=== PATIENT | male | born 1980 | race Caucasian/White ===

== ENCOUNTER 2018-01-02 00:01 | Emergency (ER) | payer MEDICAID, OTHER ==
[~2018-01-02] VITALS: Ht 177.8 cm; Wt 77.2 kg
[2018-01-02] MEDS ORDERED: TETanus/Pertussis (Acell)/Diphther VAC/PF (Tdap-Adult) 0.5ml syringe IMVAC ONE (01:10)
[2018-01-02] MEDS ORDERED: LIDOcaine 1.5% w/epinephrine 1:200,000 5ml ampul IJ ONE (01:10)
[2018-01-02 01:17] LABS: CLARITY,URINE CLEAR (Clear); COLOR,URINE YELLOW (Yellow); GLUCOSE, URINE NEGATIVE (Neg); KETONES,URINE NEGATIVE (Neg); LEUKOCYTE ESTERASE ,URINE NEGATIVE (Neg); NITRITES, URINE NEGATIVE (Neg); OCCULT BLOOD,URINE TRACE-INTACT (Neg); PROTEIN,URINE NEGATIVE (Neg); UROBILINOGEN,URINE 0.2 E.U/dL (0.2-1.0)
[2018-01-02 01:18] LABS: UA COLLECTION TYPE CLN CATCH MIDSTREAM; URINE AMPHETAMINE SCREEN NEGATIVE (Neg); URINE BARBITUATE SCREEN NEGATIVE (Neg); URINE BENZODIAZEPINES SCREEN NEGATIVE (Neg); URINE CANNABINOID SCREEN POSITIVE (Neg); URINE COCAINE SCREEN NEGATIVE (Neg); URINE METHADONE SCREEN NEGATIVE (Neg); URINE OPIATE SCREEN NEGATIVE (Neg); URINE PHENCYCLIDINE SCREEN NEGATIVE (Neg)
[2018-01-02 01:29] LABS: BACTERIA,URINE NONE SEEN /HPF (Neg); MUCUS STRANDS NONE SEEN /LPF (Neg); RBC,URINE 0-2 /HPF (0-2); SQUAMOUS EPITHELIAL CELL,UR FEW /LPF (FEW); WBC,URINE NONE SEEN /HPF (0-4)
[2018-01-02] MEDS ORDERED: CEPH250T PO (01:39)
[2018-01-02 01:57] VITALS: BP 122/56
== END 2018-01-02 02:02 | disposition home or self-care (01) ==
LOC: ER 00:02
DX: S01.91XA Laceration without foreign body of unspecified part of head, initial encounter (principal); F90.9 Attention-deficit hyperactivity disorder, unspecified type; F10.129 Alcohol abuse with intoxication, unspecified; F12.10 Cannabis abuse, uncomplicated; F15.10 Other stimulant abuse, uncomplicated; F17.210 Nicotine dependence, cigarettes, uncomplicated; W22.8XXA Striking against or struck by other objects, initial encounter; Y93.89 Activity, other specified; Y92.89 Other specified places as the place of occurrence of the external cause; Y99.8 Other external cause status
CPT/HCPCS: 70450; 70486; 72125; 80305; 81001; 90471; 99285; A6449; J3490

== ENCOUNTER 2018-01-02 02:14 | Emergency (ER) | payer MEDICAID ==
[~2018-01-02] VITALS: Ht 175.3 cm; Wt 77.2 kg
[~2018-01-02 02:14] MED LIST: CEPH250T PO
[2018-01-02] MEDS ORDERED: LIDOcaine 1.5% w/epinephrine 1:200,000 5ml ampul IJ ONE (02:35)
[2018-01-02 02:40] VITALS: BP 125/73
== END 2018-01-02 02:44 | disposition home or self-care (01) ==
LOC: ER 02:14
DX: S01.81XA Laceration without foreign body of other part of head, initial encounter (principal); F12.10 Cannabis abuse, uncomplicated; F10.129 Alcohol abuse with intoxication, unspecified; F15.10 Other stimulant abuse, uncomplicated; Z79.899 Other long term (current) drug therapy; Y08.89XA Assault by other specified means, initial encounter; Y93.89 Activity, other specified; Y92.89 Other specified places as the place of occurrence of the external cause; Y99.8 Other external cause status
CPT/HCPCS: 12014; 99284; A6449

== ENCOUNTER 2019-08-14 18:48 | Emergency (ER) | payer MEDICAID ==
[~2019-08-14] VITALS: Ht 175.3 cm; Wt 77.3 kg
[2019-08-14 18:57] VITALS: BP 112/61
[2019-08-14] MEDS ORDERED: ibuprofen tablet 400 MG TABLET PO ONE (19:15)
[2019-08-14] MEDS ORDERED: CHLO473M3 PO (19:31)
[2019-08-14] MEDS ORDERED: PENI500T2 PO (19:31)
== END 2019-08-14 20:04 | disposition home or self-care (01) ==
LOC: EDBD → ER 18:48
DX: K08.89 Other specified disorders of teeth and supporting structures (principal); J02.9 Acute pharyngitis, unspecified; F10.99 Alcohol use, unspecified with unspecified alcohol-induced disorder; F12.90 Cannabis use, unspecified, uncomplicated; F15.90 Other stimulant use, unspecified, uncomplicated; Z88.8 Allergy status to other drugs, medicaments and biological substances; Z79.899 Other long term (current) drug therapy; Y90.9 Presence of alcohol in blood, level not specified
CPT/HCPCS: 99283

== ENCOUNTER 2019-08-17 06:01 | Inpatient (IN) | payer MEDICAID ==
[~2019-08-17] VITALS: Ht 175.3 cm; Wt 72.7 kg
[2019-08-17] VITALS (23 sets, daily range): BP systolic 90–116; BP diastolic 39–79
[~2019-08-17 06:01] MED LIST changes: -CEPH250T PO; +CHLO473M3 PO; +PENI500T2 PO
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
--- NOTE | 2019-08-17 07:58 | NUR ---
KISHORE AT BEDSIDE, ALEK, DR. BELLAMY SUTURING. HE WILL BE DONE IN 45MIN, TO CALL [facility] WHEN IS FINISHED FOR OFFICIERS TO RETURN.
[2019-08-17] MEDS ORDERED: LIDOcaine 1% W/epiNEPHrine 1:100,000 20ml vial ONE (08:00)
[2019-08-17] MEDS ORDERED: LIDOcaine 1% 30ml preserv. free vial ONE (08:00)
--- NOTE | 2019-08-17 08:25 | NUR ---
NOTIFIED MCKAYLA LINDSAY AVAILABLE TO TALK.
--- NOTE | 2019-08-17 08:45 | NUR ---
OFFICIERS ALEK AT BEDSIDE.
[2019-08-17] MEDS: amox tr/potassium clavulanate 500mg/125mg TAB PO SCH (08:47)
[2019-08-17] MEDS ORDERED: IBUP-1984 PO (08:49)
[2019-08-17] MEDS ORDERED: AMOX-419 PO (08:49)
--- NOTE | 2019-08-17 08:50 | NUR ---
Bruno aldridge in ED - 08/17/19 at 0850 by LESVIA MIA- SUTURE AND DERMABOND.
--- NOTE | 2019-08-17 08:50 | NUR ---
MIA- SUTURE AND DERMABOND.
[2019-08-17] MEDS ORDERED: morphine 4 MG/ML inj SYRINge IV ONE ×2 (09:25→10:45)
[2019-08-17 10:23] LABS: BASOPHILS # (AUTO) 0.1 X10'3 (0-0.2); BASOPHILS % (AUTO) 0.7 % (0-1); EOSINOPHILS % (AUTO) 0.1 % (0-6); HEMATOCRIT 39.5 % (42.0-52.0); HEMOGLOBIN 13.6 g/dl (14.0-17.9); LYMPHOCYTES # (AUTO) 1.3 X10'3 (1.1-4.8); LYMPHOCYTES % (AUTO) 15.5 % (21-51); MEAN CORPUSCULAR HEMOGLOBIN 31.3 PG (27.0-31.0); MEAN CORPUSCULAR HGB CONC 34.4 g/dL (33.0-36.5); MEAN CORPUSCULAR VOLUME 91.1 FL (78-98); MEAN PLATELET VOLUME 8.3 FL (7.4-10.4); MONOCYTES # (AUTO) 0.7 X10'3 (0-0.9); MONOCYTES % (AUTO) 8.3 % (2-12); NEUTROPHILS # (AUTO) 6.4 X10'3 (1.8-7.7); NEUTROPHILS % (AUTO) 75.4 % (42-75); PLATELET COUNT 238 X10'3 (140-440); RED BLOOD COUNT 4.33 X10'6 (4.70-6.10); RED CELL DISTRIBUTION WIDTH 13.5 % (11.5-14.5); WHITE BLOOD COUNT 8.5 X10'3 (4.5-11.0)
[2019-08-17 10:36] LABS: ALANINE AMINOTRANSFERASE 40 U/L (12-78); ALBUMIN 4.1 G/DL (3.4-5.0); ALBUMIN/GLOBULIN RATIO 1.3 (1.1-1.5); ALKALINE PHOSPHATASE 84 IU/L (46-116); ANION GAP 10 (8-16); ASPARTATE AMINO TRANSFERASE 37 U/L (10-37); BILIRUBIN,TOTAL 0.5 MG/DL (0.1-1.0); BLOOD UREA NITROGEN 10 MG/DL (7-18); CALCIUM 8.5 MG/DL (8.5-10.1); CHLORIDE 103 MMOL/L (99-107); CREATININE 0.83 MG/DL (0.60-1.10); GLUCOSE 89 MG/DL (70-104); POTASSIUM 3.9 MMOL/L (3.5-5.1); SODIUM 140 MMOL/L (135-145); TOTAL CARBON DIOXIDE 27.4 MMOL/L (24-32); TOTAL PROTEIN 7.3 G/DL (6.4-8.2); eGFR > 90 ML/MIN
--- NOTE | 2019-08-17 10:49 | NUR ---
called CT for .
--- NOTE | 2019-08-17 10:49 | NUR ---
obtained new pain med order.
--- NOTE | 2019-08-17 11:21 | NUR ---
PT REMOVED HIS OWN SPLINT FOR COMFORT.
--- NOTE | 2019-08-17 12:12 | NUR ---
elevated left leg up and applied ice.
[2019-08-17] MEDS ORDERED: CHLO473M3 PO (13:11)
[2019-08-17] MEDS ORDERED: PENI-88 PO (13:12)
[2019-08-17] MEDS ORDERED: ceFAZolin 1GM/D5W- ADD-VANTAGE 50 ML IV ONE (14:00)
[2019-08-17] MEDS ORDERED: BUPIVAcaine/PF 2.5 mg/ml (0.25%) 30ml vial ONE (14:00)
[2019-08-17] MEDS ORDERED: ceFAZolin 1000mg inj ONE (14:00)
[2019-08-17] MEDS ORDERED: sevoflurane 250ml liquid IH ONE (14:48)
[2019-08-17] MEDS ORDERED: dexamethasone sod phosphate 10mg/ml inj ONE (14:48)
[2019-08-17] MEDS ORDERED: fentaNYL/PF 50MCG/1 ML 2ML syringe ONE (14:49)
[2019-08-17] MEDS ORDERED: MIDAZolam 5mg/5ml vial ONE (14:50)
[2019-08-17] MEDS ORDERED: ROPIVAcaine 0.5% (5mg/ml) 30ml vial ONE ×2 (15:14)
[2019-08-17] MEDS ORDERED: propofol inj 20 ML IV ONE (15:14)
[2019-08-17] MEDS ORDERED: LIDOcaine 2% (20mg/ml) 5ml vial ONE (15:14)
[2019-08-17] MEDS ORDERED: ondansetron/PF 4mg/2ml inj ONE (15:16)
[2019-08-17] MEDS ORDERED: morphine 4 MG/ML inj SYRINge IV PRN ×2 (15:40)
[2019-08-17] MEDS ORDERED: hydrALAZINE 20mg/ml inj. IV PRN (15:40)
[2019-08-17] MEDS ORDERED: ondansetron/PF 4mg/2ml inj IV PRN ×2 (15:40→17:35)
[2019-08-17] MEDS ORDERED: ringers solution, lacted 1,000 ML IV SCH (15:40)
[2019-08-17] MEDS ORDERED: fentaNYL/PF 50MCG/1 ML 2ML syringe IV PRN ×2 (15:40)
[2019-08-17] MEDS ORDERED: labetalol 20mg/4ml (5mg/ml) syringe IV PRN (15:40)
--- NOTE | 2019-08-17 16:25 | NUR ---
Received from OR via , accompanied by Anesthesiologist DR GILL and report given by Anesthesiolgist. PT IS SLEEPING AND NOT RESPONDING TO VOICE OR MOVING EXT AT THIS TIME, SKIN WARM AND PINK, RIGHT AC 20G PATENT WITH LR 100MLS/HR, LEFT FACIAL LACERATION WITH STICHES CD, LEFT ANKLE SPLINT WITH LIZA WRAP CD, VSS.
--- NOTE | 2019-08-17 16:40 | NUR ---
PT IS OPENING EYES TO VOICE. STILL VERY SLEEPY.
[2019-08-17] MEDS ORDERED: normal saline 1000ml 1,000 ML IV SCH (17:32)
[2019-08-17] MEDS ORDERED: potassium CL 10mEq/100ml bag 100 ML IV PRN ×2 (17:35)
[2019-08-17] MEDS ORDERED: magnesium 4gm in 100ml NS 100 ML IV PRN (17:35)
[2019-08-17] MEDS ORDERED: potassium Cl 20 mEq SR tablet PO PRN ×2 (17:35)
[2019-08-17] MEDS ORDERED: acetaminophen 325mg tablet PO PRN (17:35)
[2019-08-17] MEDS ORDERED: magnesium 2GM in 50ml NS 50 ML IV PRN (17:35)
[2019-08-17] MEDS ORDERED: magnesium Cl slow-release 64mg tablet PO PRN (17:35)
[2019-08-17] MEDS ORDERED: morphine 2 MG/ML inj. syringe IV PRN (17:35)
--- NOTE | 2019-08-17 17:46 | NUR ---
received report from jerilyn waite in recovery
--- NOTE | 2019-08-17 18:07 | NUR ---
gave report to ravindra ruffin
--- NOTE | 2019-08-17 18:45 | NUR ---
Report called to receiving nurse. Transferred via BED, 4 BAGS OF PERSONAL Belongings, 1 BACK PACK, CELL PHONE AND CUSHION PADDER, WALLET SENT W/PT TO ROOM 4022A. BLL, CALL LIGHT GIVEN TO PT, SIDE RAILS UP X 2, PT ATTACHED TO VS, RECEIVING RN NOTIFIED OF PTS ARRIVAL. Special Issues communicated to receiving nurse. YES. Addendum: 08/17/19 at 1859 by Maddison Nunn RN Amended: Links added.
[2019-08-17] MEDS: docusate sod 100mg capsule PO SCH (21:15)
[2019-08-18] MEDS: ceFAZolin 1GM/D5W- ADD-VANTAGE 50 ML IV SCH ×2 (00:17→07:24)
[2019-08-18 02:00] VITALS: BP 100/47
[2019-08-18] MEDS: HYDROcodone/acetaminophen 5mg/325mg tablet PO PRN ×2 (04:26→12:45)
[2019-08-18 06:10] VITALS: BP 100/53
--- NOTE | 2019-08-18 06:30 | NUR ---
Patient in room ORTHO 4022. I have received report from Yumiko RN and had the opportunity to ask questions and assume patient care.
[2019-08-18 06:55] LABS: BASOPHILS % (AUTO) 0.1 % (0-1); EOSINOPHILS % (AUTO) 0 % (0-6); HEMATOCRIT 34.7 % (42.0-52.0); HEMOGLOBIN 11.9 g/dl (14.0-17.9); LYMPHOCYTES # (AUTO) 1.1 X10'3 (1.1-4.8); LYMPHOCYTES % (AUTO) 12.5 % (21-51); MEAN CORPUSCULAR HEMOGLOBIN 31.9 PG (27.0-31.0); MEAN CORPUSCULAR HGB CONC 34.2 g/dL (33.0-36.5); MEAN CORPUSCULAR VOLUME 93.3 FL (78-98); MEAN PLATELET VOLUME 8.7 FL (7.4-10.4); MONOCYTES # (AUTO) 0.8 X10'3 (0-0.9); MONOCYTES % (AUTO) 8.5 % (2-12); NEUTROPHILS # (AUTO) 7.1 X10'3 (1.8-7.7); NEUTROPHILS % (AUTO) 78.9 % (42-75); PLATELET COUNT 217 X10'3 (140-440); RED BLOOD COUNT 3.72 X10'6 (4.70-6.10); RED CELL DISTRIBUTION WIDTH 13.4 % (11.5-14.5); WHITE BLOOD COUNT 9.1 X10'3 (4.5-11.0)
[2019-08-18 06:58] LABS: ANION GAP 9 (8-16); BLOOD UREA NITROGEN 14 MG/DL (7-18); BUN/CREATININE RATIO 19.2 (5.4-32.0); CALCIUM 8.1 MG/DL (8.5-10.1); CHLORIDE 102 MMOL/L (99-107); CREATININE 0.73 MG/DL (0.60-1.10); GLUCOSE 141 MG/DL (70-104); MAGNESIUM 1.8 MG/DL (1.5-2.4); POTASSIUM 4.3 MMOL/L (3.5-5.1); SODIUM 136 MMOL/L (135-145); TOTAL CARBON DIOXIDE 25.3 MMOL/L (24-32); eGFR > 90 ML/MIN
[2019-08-18] MEDS: docusate sod 100mg capsule PO SCH ×2 (07:24→19:01)
[2019-08-18] MEDS: K and/or MAG REPLACEMENT MC SCH (08:00)
[2019-08-18] MEDS: amox tr/potassium clavulanate 500mg/125mg TAB PO SCH (09:12)
[2019-08-18 10:00] VITALS: BP 102/52
--- NOTE | 2019-08-18 13:00 | NUR ---
spoke with Geovanna Estes and she ordered patient Dilaudid 1mg q4 hr severe pain and norco 1 or 2 10 mg tabs. Patient was very painful.
[2019-08-18] MEDS ORDERED: HYDROcodone/acetaminophen 10/325mg tab PO PRN (13:10)
[2019-08-18] MEDS: HYDROmorphone 1 mg/ml syringe IV PRN ×2 (13:21→17:26)
[2019-08-18 14:00] VITALS: BP 121/71
[2019-08-18] MEDS: HYDROcodone/acetaminophen 10/325mg tab PO PRN ×2 (14:21→19:00)
--- NOTE | 2019-08-18 15:26 | NUR ---
I called Dr. Conley for patient increasing pain with no relief, patient ry and luca, I asked if I could have ortho nurse loosen splint he said it was a good idea.
--- NOTE | 2019-08-18 18:35 | NUR ---
Problems reprioritized. Patient report given, questions answered & plan of care reviewed with Chaya REYES.
--- NOTE | 2019-08-18 18:37 | NUR ---
Patient in room ORTHO 4022. I have received report from TORREY REYES and had the opportunity to ask questions and assume patient care.
[2019-08-18 19:00] VITALS: BP 124/73
[2019-08-18 23:00] VITALS: BP 109/69
[2019-08-19] MEDS: HYDROmorphone 1 mg/ml syringe IV PRN ×3 (00:06→13:37)
[2019-08-19] MEDS: HYDROcodone/acetaminophen 10/325mg tab PO PRN ×3 (03:11→19:36)
[2019-08-19 06:10] VITALS: BP 112/55
--- NOTE | 2019-08-19 06:15 | NUR ---
Problems reprioritized. Patient report given, questions answered & plan of care reviewed with TORREY REYES.
--- NOTE | 2019-08-19 06:22 | NUR ---
Patient in room ORTHO 4022. I have received report from Chaya REYES and had the opportunity to ask questions and assume patient care.
[2019-08-19 06:28] LABS: BASOPHILS % (AUTO) 0.3 % (0-1); EOSINOPHILS % (AUTO) 0.4 % (0-6); HEMATOCRIT 33.2 % (42.0-52.0); HEMOGLOBIN 11.4 g/dl (14.0-17.9); LYMPHOCYTES # (AUTO) 1.9 X10'3 (1.1-4.8); LYMPHOCYTES % (AUTO) 25.3 % (21-51); MEAN CORPUSCULAR HEMOGLOBIN 31.6 PG (27.0-31.0); MEAN CORPUSCULAR HGB CONC 34.4 g/dL (33.0-36.5); MEAN CORPUSCULAR VOLUME 91.8 FL (78-98); MEAN PLATELET VOLUME 8.6 FL (7.4-10.4); MONOCYTES # (AUTO) 0.6 X10'3 (0-0.9); MONOCYTES % (AUTO) 8.6 % (2-12); NEUTROPHILS # (AUTO) 4.9 X10'3 (1.8-7.7); NEUTROPHILS % (AUTO) 65.4 % (42-75); PLATELET COUNT 201 X10'3 (140-440); RED BLOOD COUNT 3.61 X10'6 (4.70-6.10); RED CELL DISTRIBUTION WIDTH 13.2 % (11.5-14.5); WHITE BLOOD COUNT 7.5 X10'3 (4.5-11.0)
[2019-08-19 06:36] LABS: ALBUMIN 3.1 G/DL (3.4-5.0); ANION GAP 5 (8-16); BLOOD UREA NITROGEN 10 MG/DL (7-18); BUN/CREATININE RATIO 12.7 (5.4-32.0); CALCIUM 8.4 MG/DL (8.5-10.1); CHLORIDE 103 MMOL/L (99-107); CREATININE 0.79 MG/DL (0.60-1.10); GLUCOSE 94 MG/DL (70-104); MAGNESIUM 1.6 MG/DL (1.5-2.4); POTASSIUM 4.1 MMOL/L (3.5-5.1); SODIUM 138 MMOL/L (135-145); eGFR > 90 ML/MIN
[2019-08-19] MEDS: amox tr/potassium clavulanate 500mg/125mg TAB PO SCH (07:42)
[2019-08-19] MEDS: docusate sod 100mg capsule PO SCH ×2 (07:42→19:35)
[2019-08-19] MEDS: K and/or MAG REPLACEMENT MC SCH (08:00)
--- NOTE | 2019-08-19 08:43 | NUR ---
I talked to Dr. Conley about possibility of compartment syndrome. I told him he had good pedal and popliteal pulse, good color and sensation, but seems to have severe pain when out of bed. said he doesn't believe it to be compartment syndrome, but he would come to see the patient today.
[2019-08-19 10:00] VITALS: BP 110/54
[2019-08-19] MEDS ORDERED: magnesium citrate 296ml oral solution PO ONE (14:50)
--- NOTE | 2019-08-19 15:03 | NUR ---
WOUND INFECTION EDUCATION PROVIDED BY WOUND CARE 1. Patient instructed to call their primary doctor, or go the ED immediately if any of the following symptoms occur: * Increased pain in wound * Increase in drainage from the wound * Redness in the skin surrounding the wound * Warmth in the skin surrounding the wound * Bleeding from the wound * Temperature of 101 or greater 2. If any of these occur while in the hospital tell a nurse immediately. Addendum: 08/19/19 at 1503 by Katie cMcall RN Amended: Links added.
[2019-08-19] MEDS: mupirocin 2% ointment 22GM TP SCH (16:44)
[2019-08-19 18:00] VITALS: BP 112/73
--- NOTE | 2019-08-19 18:30 | NUR ---
Problems reprioritized. Patient report given, questions answered & plan of care reviewed with Carolina REYES.
--- NOTE | 2019-08-19 18:38 | NUR ---
Patient in room ORTHO 4022. I have received report from Marilou REYES and had the opportunity to ask questions and assume patient care.
[2019-08-19 22:00] VITALS: BP 108/58
[2019-08-20] MEDS: HYDROcodone/acetaminophen 10/325mg tab PO PRN ×3 (01:59→12:44)
--- NOTE | 2019-08-20 03:47 | NUR ---
Patient informed me that he had gotten out of bed on his own to use the restroom and he had a small hard bm. I educated him on the weight bearing status and that he needs to call for help to get out of his bed; he verbalized that he understood and would ask for help next time.
[2019-08-20 06:00] VITALS: BP 106/64
--- NOTE | 2019-08-20 06:46 | NUR ---
Problems reprioritized. Patient report given, questions answered & plan of care reviewed with Areli REYES.
--- NOTE | 2019-08-20 07:04 | NUR ---
Patient in room ORTHO 4022. I have received report from Carolina REYES and had the opportunity to ask questions and assume patient care.
[2019-08-20] MEDS: K and/or MAG REPLACEMENT MC SCH (08:00)
[2019-08-20] MEDS: amox tr/potassium clavulanate 500mg/125mg TAB PO SCH (08:32)
[2019-08-20] MEDS: docusate sod 100mg capsule PO SCH (08:32)
[2019-08-20] MEDS: HYDROmorphone 1 mg/ml syringe IV PRN (08:38)
[2019-08-20 10:00] VITALS: BP 121/53
[2019-08-20 10:08] LABS: BASOPHILS % (AUTO) 0.5 % (0-1); EOSINOPHILS # (AUTO) 0.1 X10'3 (0-0.9); EOSINOPHILS % (AUTO) 1.3 % (0-6); HEMATOCRIT 37.4 % (42.0-52.0); HEMOGLOBIN 12.8 g/dl (14.0-17.9); LYMPHOCYTES # (AUTO) 1.5 X10'3 (1.1-4.8); LYMPHOCYTES % (AUTO) 22.8 % (21-51); MEAN CORPUSCULAR HEMOGLOBIN 31.5 PG (27.0-31.0); MEAN CORPUSCULAR HGB CONC 34.1 g/dL (33.0-36.5); MEAN CORPUSCULAR VOLUME 92.3 FL (78-98); MEAN PLATELET VOLUME 8.5 FL (7.4-10.4); MONOCYTES # (AUTO) 0.5 X10'3 (0-0.9); MONOCYTES % (AUTO) 8.2 % (2-12); NEUTROPHILS # (AUTO) 4.3 X10'3 (1.8-7.7); NEUTROPHILS % (AUTO) 67.2 % (42-75); PLATELET COUNT 240 X10'3 (140-440); RED BLOOD COUNT 4.05 X10'6 (4.70-6.10); WHITE BLOOD COUNT 6.5 X10'3 (4.5-11.0)
[2019-08-20 10:10] LABS: ALBUMIN 3.3 G/DL (3.4-5.0); ANION GAP 6 (8-16); BLOOD UREA NITROGEN 13 MG/DL (7-18); BUN/CREATININE RATIO 15.3 (5.4-32.0); CALCIUM 9.3 MG/DL (8.5-10.1); CHLORIDE 100 MMOL/L (99-107); CREATININE 0.85 MG/DL (0.60-1.10); GLUCOSE 96 MG/DL (70-104); MAGNESIUM 2.1 MG/DL (1.5-2.4); POTASSIUM 4.2 MMOL/L (3.5-5.1); SODIUM 138 MMOL/L (135-145); eGFR > 90 ML/MIN
[2019-08-20] MEDS ORDERED: AMOX-419 PO (12:41)
[2019-08-20] MEDS: mupirocin 2% ointment 22GM TP SCH (12:44)
--- NOTE | 2019-08-20 13:20 | NUR ---
I called and spoke to Dr Mehta re pain meds for this pt upon dc. I asked if he would be willing to write for norco for dc, as the hospitalist was not comfortable sending pt home with narcotics. Dr Mehta would do this but he is unable to erx since he is not physically at the hospital at this time. He asked me to ask the hospitalist again, for a small supply to get the pt through until Thursday where pt can follow up outpatient with [facility]. He states that the hospitalist can call him to discuss if any concerns about that. paged the hospitalist this message. Also the pt needs a short leg cast before dc. Paged communication technician. Awaiting call back from hospitalist
--- NOTE | 2019-08-20 13:30 | NUR ---
PAGER ID: [phone] MESSAGE: Danny Jiménez [phone] re Toi Nabeel in [id number]- Dr Mehta unable to send rx for [place] since he is not in his system- can you send small supply x 2 days and ortho will f/u on Mon outpt. Dr Mehta says feel free to call him [phone]
--- NOTE | 2019-08-20 13:38 | NUR ---
Hospitalist called back and states she will send 10 norcos and/or ultram.
[2019-08-20] MEDS ORDERED: HYDR-4353 PO (13:44)
--- NOTE | 2019-08-20 16:42 | NUR ---
Patient stable for discharge home today with brother. All belongings sent with patient and medications stored in pharmacy given to patient. Medications were e-scripted to [facility] [place], and [place] pain medication given to patient at time of discharge. Patient was instructed to follow up with [facility] on Thursday08/22/[address] Conley. New cast was put on by Heavy Equipment Technician before DC
[2019-08-21] MEDS ORDERED: ALBU8HFA PO (17:14)
== END 2019-08-20 16:20 | disposition home or self-care (01) | DRG 313 ==
LOC: ER 06:01 → EDBD 06:01 → ORTHO 4S 17:32 → EEVIPCON 17:32 → EDBD 17:32
PROVIDERS: ADMIT Internal Medicine; ATTEND Internal Medicine
PROC: 0KQ13ZZ Repair Facial Muscle, Percutaneous Approach (ICD-10-PCS; 2019-08-17)
PROC: 0JQ13ZZ Repair Face Subcutaneous Tissue and Fascia, Percutaneous Approach (ICD-10-PCS; 2019-08-17)
PROC: 0HQ1XZZ Repair Face Skin, External Approach (ICD-10-PCS; 2019-08-17)
PROC: 0SSG04Z Reposition Left Ankle Joint with Internal Fixation Device, Open Approach (ICD-10-PCS; 2019-08-17)
PROC: 0QSK04Z Reposition Left Fibula with Internal Fixation Device, Open Approach (ICD-10-PCS; principal; 2019-08-17 14:48)
DX: S82.832A Other fracture of upper and lower end of left fibula, initial encounter for closed fracture (principal); F95.2 Tourette's disorder; S01.81XA Laceration without foreign body of other part of head, initial encounter; F12.90 Cannabis use, unspecified, uncomplicated; S93.432A Sprain of tibiofibular ligament of left ankle, initial encounter; F17.210 Nicotine dependence, cigarettes, uncomplicated; Z59.0 Homelessness; Y08.89XA Assault by other specified means, initial encounter; Y93.89 Activity, other specified; Y92.89 Other specified places as the place of occurrence of the external cause; Y99.8 Other external cause status
CPT/HCPCS: 36415; 40650; 70450; 73590; 73600; 80048; 80053; 83735; 85025; 85610; 87081; 96365; 96375; 96376; 97116; 97161; 97530; 99285; A4215; A4618; A6222; A6449; A7000; C1713; G0378; J0690; J1100; J1170; J2001; J2250; J2270; J2405; J2704; J2795; J3010; J3370; J3490; J7030; J7120

== ENCOUNTER 2019-08-21 15:35 | Emergency (ER) | payer MEDICAID ==
[~2019-08-21] VITALS: Ht 175.3 cm; Wt 80.0 kg
[~2019-08-21 15:35] MED LIST changes: +AMOX-419 PO; -CHLO473M3 PO; -PENI500T2 PO
[2019-08-21] MEDS ORDERED: ALBU8HFA PO (17:14)
[2019-08-21 17:40] VITALS: BP 136/90
== END 2019-08-21 17:25 | disposition home or self-care (01) ==
LOC: ER 15:35
DX: J45.909 Unspecified asthma, uncomplicated (principal); F12.90 Cannabis use, unspecified, uncomplicated; F15.90 Other stimulant use, unspecified, uncomplicated; F10.99 Alcohol use, unspecified with unspecified alcohol-induced disorder; Z59.0 Homelessness; Z87.891 Personal history of nicotine dependence; Z98.890 Other specified postprocedural states; Z88.8 Allergy status to other drugs, medicaments and biological substances; Z79.899 Other long term (current) drug therapy; Y90.9 Presence of alcohol in blood, level not specified
CPT/HCPCS: 71045; 99283

== ENCOUNTER 2019-09-30 13:32 | Emergency (ER) | payer MEDICAID ==
[~2019-09-30] VITALS: Ht 177.8 cm; Wt 72.7 kg
[2019-09-30 13:37] VITALS: BP 120/93
== END 2019-09-30 15:51 | disposition home or self-care (01) ==
LOC: ER 13:33
DX: S82.832A Other fracture of upper and lower end of left fibula, initial encounter for closed fracture (principal); J45.909 Unspecified asthma, uncomplicated; F12.90 Cannabis use, unspecified, uncomplicated; F15.90 Other stimulant use, unspecified, uncomplicated; F10.99 Alcohol use, unspecified with unspecified alcohol-induced disorder; Z59.0 Homelessness; Z88.8 Allergy status to other drugs, medicaments and biological substances; X58.XXXA Exposure to other specified factors, initial encounter; Y93.89 Activity, other specified; Y92.89 Other specified places as the place of occurrence of the external cause; Y99.8 Other external cause status; Y90.9 Presence of alcohol in blood, level not specified
CPT/HCPCS: 29515; 99283

== ENCOUNTER 2019-10-27 03:35 | Emergency (ER) | payer MEDICAID ==
[~2019-10-27] VITALS: Ht 175.3 cm; Wt 59.8 kg
[2019-10-27] MEDS ORDERED: magnesium oxide 400mg tablet PO ONE (03:50)
[2019-10-27 04:28] LABS: URINE AMPHETAMINE SCREEN POSITIVE (Neg); URINE BARBITUATE SCREEN NEGATIVE (Neg); URINE BENZODIAZEPINES SCREEN NEGATIVE (Neg); URINE CANNABINOID SCREEN POSITIVE (Neg); URINE COCAINE SCREEN NEGATIVE (Neg); URINE METHADONE SCREEN NEGATIVE (Neg); URINE OPIATE SCREEN NEGATIVE (Neg); URINE PHENCYCLIDINE SCREEN NEGATIVE (Neg)
[2019-10-27 04:57] VITALS: BP 127/91
== END 2019-10-27 05:03 | disposition home or self-care (01) ==
LOC: ER 03:36
DX: T50.995A Adverse effect of other drugs, medicaments and biological substances, initial encounter (principal); R00.2 Palpitations; F15.10 Other stimulant abuse, uncomplicated; G47.00 Insomnia, unspecified; J45.909 Unspecified asthma, uncomplicated; F17.210 Nicotine dependence, cigarettes, uncomplicated; F12.90 Cannabis use, unspecified, uncomplicated; Z59.0 Homelessness; Y92.89 Other specified places as the place of occurrence of the external cause
CPT/HCPCS: 80305; 93005; 99284

== ENCOUNTER 2020-03-29 14:50 | Outpatient (CLI) | payer MEDICAID ==
[~2020-03-29] VITALS: Ht 175.3 cm; Wt 72.6 kg
[2020-03-29] MEDS ORDERED: MARIJAUNA INH (15:35)
[2020-03-29 16:38] LABS: BASOPHILS # (AUTO) 0.1 X10'3 (0-0.2); BASOPHILS % (AUTO) 1.1 % (0-1); EOSINOPHILS # (AUTO) 0.3 X10'3 (0-0.9); LYMPHOCYTES # (AUTO) 2.1 X10'3 (1.1-4.8); MEAN CORPUSCULAR HEMOGLOBIN 30.8 PG (27.0-31.0); MEAN CORPUSCULAR HGB CONC 33.1 g/dL (33.0-36.5); MEAN PLATELET VOLUME 8.4 FL (7.4-10.4); MONOCYTES # (AUTO) 0.5 X10'3 (0-0.9); NEUTROPHILS # (AUTO) 3.7 X10'3 (1.8-7.7); NEUTROPHILS % (AUTO) 55.9 % (42-75); PRE OP HEMATOCRIT 43.3 % (42.0-52.0); PRE OP HEMOGLOBIN 14.3 g/dL (14.0-17.9); PRE OP PLATELET COUNT 287 X10'3 (140-440); RED BLOOD COUNT 4.66 X10'6 (4.70-6.10); RED CELL DISTRIBUTION WIDTH 13.1 % (11.5-14.5)
[2020-03-29 16:47] LABS: ALBUMIN/GLOBULIN RATIO 1.1 (1.1-1.5); ALKALINE PHOSPHATASE 89 IU/L (46-116); BLOOD UREA NITROGEN 18 MG/DL (7-18); BUN/CREATININE RATIO 17.1 (5.4-32.0); CALCIUM 8.8 MG/DL (8.5-10.1); CHLORIDE 103 MMOL/L (99-107); CREATININE 1.05 MG/DL (0.60-1.10); PRE OP ALT 15 U/L (30-65); PRE OP ANION GAP 8 (8-16); PRE OP AST 16 U/L (10-37); PRE OP BILIRUB, TOTAL 0.6 MG/DL (0.0-1.0); PRE OP GLUCOSE 90 MG/DL (70-104); PRE OP POTASSIUM 3.7 MMOL/L (3.4-5.1); PRE OP SODIUM 141 MMOL/L (135-145); TOTAL CARBON DIOXIDE 29.7 MMOL/L (24-32); TOTAL PROTEIN 7.6 G/DL (6.4-8.2); eGFR 79 ML/MIN
[2020-04-06] MEDS ORDERED: ringers solution, lacted 1,000 ML IV SCH (05:00)
[2020-04-06] MEDS ORDERED: famotidine 20mg tablet PO ONE (05:30)
[2020-04-06] MEDS ORDERED: ceFAZolin 2gm in dextrose, iso 50 ML IV ONE (05:30)
== END 2020-03-29 23:59 | disposition home or self-care (01) ==
LOC: PRE-OP 14:50 → EDSTATUS 04-06 10:45
PROVIDERS: ATTEND Orthopaedic Surgery Hand Surgery
DX: Z01.818 Encounter for other preprocedural examination (principal); S93.439A Sprain of tibiofibular ligament of unspecified ankle, initial encounter; S82.409A Unspecified fracture of shaft of unspecified fibula, initial encounter for closed fracture; X58.XXXA Exposure to other specified factors, initial encounter; Y93.89 Activity, other specified; Y92.89 Other specified places as the place of occurrence of the external cause; Y99.8 Other external cause status; Z96.7 Presence of other bone and tendon implants; Z72.0 Tobacco use; Z11.59 Encounter for screening for other viral diseases
CPT/HCPCS: 36415; 80053; 85025; U0003; J7120

== ENCOUNTER 2020-05-24 12:31 | Emergency (ER) | payer MEDICAID ==
[~2020-05-24] VITALS: Ht 175.3 cm; Wt 69.8 kg
[~2020-05-24 12:31] MED LIST changes: -AMOX-419 PO; +MARIJAUNA INH
[2020-05-24] MEDS ORDERED: CHLO473M3 PO (13:43)
[2020-05-24] MEDS ORDERED: PENI500T2 PO (13:43)
[2020-05-24 13:52] VITALS: BP 130/88
== END 2020-05-24 13:52 | disposition home or self-care (01) ==
LOC: ER 12:32
DX: K02.9 Dental caries, unspecified (principal); J45.909 Unspecified asthma, uncomplicated; F12.90 Cannabis use, unspecified, uncomplicated; F15.90 Other stimulant use, unspecified, uncomplicated; Z72.89 Other problems related to lifestyle; Z98.890 Other specified postprocedural states; Z59.0 Homelessness; Z88.8 Allergy status to other drugs, medicaments and biological substances; Z79.899 Other long term (current) drug therapy
CPT/HCPCS: 99283

== ENCOUNTER 2020-06-08 10:19 | Day surgery (SDC) | payer MEDICAID ==
[2020-05-29 14:42] LABS: BASOPHILS # (AUTO) 0.1 X10'3 (0-0.2); BASOPHILS % (AUTO) 1.2 % (0-1); EOSINOPHILS # (AUTO) 0.1 X10'3 (0-0.9); EOSINOPHILS % (AUTO) 1.2 % (0-6); LYMPHOCYTES # (AUTO) 2.2 X10'3 (1.1-4.8); LYMPHOCYTES % (AUTO) 23.3 % (21-51); MEAN CORPUSCULAR HEMOGLOBIN 31.3 PG (27.0-31.0); MEAN CORPUSCULAR HGB CONC 33.6 g/dL (33.0-36.5); MEAN CORPUSCULAR VOLUME 93.2 FL (78-98); MEAN PLATELET VOLUME 7.6 FL (7.4-10.4); MONOCYTES # (AUTO) 0.6 X10'3 (0-0.9); MONOCYTES % (AUTO) 5.9 % (2-12); NEUTROPHILS # (AUTO) 6.5 X10'3 (1.8-7.7); NEUTROPHILS % (AUTO) 68.4 % (42-75); PRE OP HEMATOCRIT 39.9 % (42.0-52.0); PRE OP HEMOGLOBIN 13.4 g/dL (14.0-17.9); PRE OP PLATELET COUNT 295 X10'3 (140-440); RED BLOOD COUNT 4.28 X10'6 (4.70-6.10); RED CELL DISTRIBUTION WIDTH 13.1 % (11.5-14.5)
[2020-05-29 14:54] LABS: ALBUMIN 4.2 G/DL (3.4-5.0); ALBUMIN/GLOBULIN RATIO 1.2 (1.1-1.5); ALKALINE PHOSPHATASE 98 IU/L (46-116); BLOOD UREA NITROGEN 11 MG/DL (7-18); BUN/CREATININE RATIO 13.6 (5.4-32.0); CHLORIDE 104 MMOL/L (99-107); CREATININE 0.81 MG/DL (0.60-1.10); PRE OP ALT 46 U/L (30-65); PRE OP ANION GAP 5 (8-16); PRE OP AST 26 U/L (10-37); PRE OP BILIRUB, TOTAL 0.5 MG/DL (0.0-1.0); PRE OP GLUCOSE 78 MG/DL (70-104); PRE OP POTASSIUM 3.9 MMOL/L (3.4-5.1); PRE OP SODIUM 140 MMOL/L (135-145); TOTAL CARBON DIOXIDE 31.5 MMOL/L (24-32); TOTAL PROTEIN 7.6 G/DL (6.4-8.2); eGFR > 90 ML/MIN
[~2020-06-08] VITALS: Ht 175.3 cm; Wt 70.4 kg
[2020-06-08] VITALS (9 sets, daily range): BP systolic 99–117; BP diastolic 58–77
[~2020-06-08 10:19] MED LIST changes: +CHLO473M3 PO; +cefazolin/dext.iso 2gm/50ml 50 ML IV ONE; +famotidine 20mg tablet PO ONE
--- NOTE | 2020-06-08 11:45 | NUR ---
PT TOOK LONG SHOWER ON ARRIVAL AND WASHED HAIR.
--- NOTE | 2020-06-08 11:49 | NUR ---
SPOKE WITH PT'S DAD AND MOM. MOM, JOSESITO, SAID SHE WILL BE AVAILABLE TO [facility] [employer] YULIET AFTER SURGERY. SHE SAID SOMETIMES SHE DOESNT GET TO THE PHONE BUT WILL CALL US BACK. DAD SAID IF WE CANT GET HER YULIET CAN GO HOME BY CAB, TO MOM'S, SHE'S ALWAYS HOME.
[2020-06-08] MEDS ORDERED: BUPIVAcaine/PF 2.5 mg/ml (0.25%) 30ml vial ONE (11:52)
[2020-06-08] MEDS ORDERED: ringers solution, lacted 1,000 ML IV SCH (12:11)
[2020-06-08] MEDS ORDERED: meperidine/PF 25mg/ml syringe IV PRN ×2 (12:15)
[2020-06-08] MEDS ORDERED: morphine 4 MG/ML inj SYRINge IV PRN (12:15)
[2020-06-08] MEDS ORDERED: morphine 2 MG/ML inj. syringe IV PRN (12:15)
[2020-06-08] MEDS ORDERED: proCHLORperazine 10 MG/2 ml inj IV PRN (12:15)
[2020-06-08] MEDS ORDERED: ondansetron/PF 4mg/2ml inj IV PRN (12:15)
[2020-06-08] MEDS ORDERED: sevoflurane 250ml liquid IH ONE (12:24)
[2020-06-08] MEDS ORDERED: fentaNYL/PF 50MCG/1 ML 2ML syringe ONE (12:26)
[2020-06-08] MEDS ORDERED: midazolam 2 mg/2 ml injection ONE (12:26)
[2020-06-08] MEDS ORDERED: propofol inj 20 ML IV ONE (12:28)
[2020-06-08] MEDS ORDERED: BUPIVAcaine/PF 2.5 mg/ml (0.25%) 30ml vial IJ ONE (12:51)
--- NOTE | 2020-06-08 13:13 | NUR ---
Received from OR via ANN MARIE , accompanied by Anesthesiologist KATIE and report given by Anesthesiolgist. PATIENT WITH 20G PIV IN LEFT UE RUNNING LR AT 100. DENIES PAIN. PATIENT WITH LIZA BANDAGE AND + POSTERIOR TIBIALIS PULSE PRESENT. VSS. Addendum: 06/08/20 at 1346 by Shin Nielson RN, RN Amended: Links added.
[2020-06-08] MEDS: meperidine/PF 25mg/ml syringe IV PRN ×2 (13:48→14:00)
--- NOTE | 2020-06-08 14:13 | NUR ---
PATIENT AND FAMILY AND THEY HAVE VERBALIZED UNDERSTANDING, OPPORTUNITY TO ASK QUESTIONS GIVEN AND PATIENT COMFORTABLE WITH DC. IV TAKEN OUT WITHOUT COMPLICATION. PATIENT HAS MET ALL DC CRITERIA FOR DC HOME. I HAVE REVIEWED D/C INSTRUCTIONS WITH OUT VIA WHEELCHAIR WHERE PATIENT WAS TAKEN HOME WITH ALL BELONGINGS. FAMILY GAVE PATIENT TRANSPORT HOME. PATIENT PLACED IN FRONT PASSENGER SEAT. INSTRUCTIONS TO GET HIS PRESCRIPTION AND "GET OFF OF WORK" NOTE FROM DR BURLESON OFFICE. (PER MD REQUEST). MOTHER DROVE PATIENT HOME. ALL BELONGINGS PLACED IN THE BACK OF HER VEHICLE. Addendum: 06/08/20 at 1452 by Shin Nielson RN, RN Amended: Links added.
== END 2020-06-08 14:13 | disposition home or self-care (01) ==
LOC: PAS 10:19
PROVIDERS: ATTEND Orthopaedic Surgery Hand Surgery
DX: T84.84XA Pain due to internal orthopedic prosthetic devices, implants and grafts, initial encounter (principal); Z20.828 Contact with and (suspected) exposure to other viral communicable diseases; Z79.899 Other long term (current) drug therapy; Z88.8 Allergy status to other drugs, medicaments and biological substances; Z98.890 Other specified postprocedural states; F12.90 Cannabis use, unspecified, uncomplicated; F17.290 Nicotine dependence, other tobacco product, uncomplicated; Z72.89 Other problems related to lifestyle; Y83.8 Other surgical procedures as the cause of abnormal reaction of the patient, or of later complication, without mention of misadventure at the time of the procedure; Y92.89 Other specified places as the place of occurrence of the external cause
CPT/HCPCS: 20680; 36415; 80053; 82948; 85025; 87635; J2175; J2250; J2704; J3010; J3490; A4215; A4618; A6449; A7000

== ENCOUNTER 2020-11-06 10:40 | Emergency (ER) | payer MEDICAID ==
[~2020-11-06] VITALS: Ht 175.3 cm; Wt 69.2 kg
[~2020-11-06 10:40] MED LIST changes: -cefazolin/dext.iso 2gm/50ml 50 ML IV ONE; -famotidine 20mg tablet PO ONE
[2020-11-06] MEDS ORDERED: TETanus/Pertussis (Acell)/Diphther VAC/PF (Tdap-Adult) 0.5ml syringe IMVAC ONE (12:50)
[2020-11-06 15:06] VITALS: BP 115/82
== END 2020-11-06 15:09 | disposition home or self-care (01) ==
LOC: ER 10:41
DX: S01.81XA Laceration without foreign body of other part of head, initial encounter (principal); M25.522 Pain in left elbow; J45.909 Unspecified asthma, uncomplicated; F15.90 Other stimulant use, unspecified, uncomplicated; F12.90 Cannabis use, unspecified, uncomplicated; Z59.0 Homelessness; Z87.81 Personal history of (healed) traumatic fracture; Z88.8 Allergy status to other drugs, medicaments and biological substances; Z79.899 Other long term (current) drug therapy; Y08.89XA Assault by other specified means, initial encounter; Y93.89 Activity, other specified; Y92.89 Other specified places as the place of occurrence of the external cause; Y99.8 Other external cause status
CPT/HCPCS: 70450; 90471; 90715; 99284

== ENCOUNTER 2020-11-27 16:44 | Emergency (ER) | payer MEDICAID ==
[~2020-11-27] VITALS: Ht 175.3 cm; Wt 77.3 kg
[2020-11-27 16:51] VITALS: BP 128/88
[2020-11-27] MEDS ORDERED: CEPH250T PO (16:54)
== END 2020-11-27 17:01 | disposition home or self-care (01) ==
LOC: ER 16:45
DX: L03.114 Cellulitis of left upper limb (principal); L03.115 Cellulitis of right lower limb; J45.909 Unspecified asthma, uncomplicated; F12.90 Cannabis use, unspecified, uncomplicated; F15.90 Other stimulant use, unspecified, uncomplicated; Z98.890 Other specified postprocedural states; Z72.89 Other problems related to lifestyle; Z59.0 Homelessness; Z88.8 Allergy status to other drugs, medicaments and biological substances; Z79.2 Long term (current) use of antibiotics; Z79.899 Other long term (current) drug therapy
CPT/HCPCS: 99283